=== PATIENT | female | born 1965 | race Caucasian/White ===

== ENCOUNTER 2025-03-05 07:58 | Outpatient (AMB) | payer OTHER, SELFPAY ==
[2025-03-05 08:01] VITALS: BP 112/76; PULSE 80; O2SAT 98; BMI 30.4
--- NOTE | 2025-03-05 08:01 | A.OFFVIS_ITS ---
Vital Signs 03/05/25 08:01 Height 5 ft 2 in Weight 166 lb 8 oz BMI 30.4 BP 112/76 Blood Pressure Location Rt brachial Position Sitting Pulse 80 Pulse Source Pulse Oximeter Pulse Oximetry (%) 98 Oxygen Delivery Method Room Air Intake Visit Reasons: ENP - Snoring Intake Note: Patient presents [employer] Snoring. Intermittent fatigue in early evenings. Able to fall asleep but awakens in early hours 3AM(with dry mouth). 2016 had sleep study-[facility]-has on phone(will request as well)(Had CPAP then lost weight). Allergies morphine Allergy (Mild, Verified 03/05/25 08:03) Nausea and Vomiting Opioids - Morphine Analogues Allergy (Mild, Verified 03/05/25 08:03) Nausea and Vomiting sulfamethoxazole Allergy (Unknown, Verified 03/05/25 08:03) rash trimethoprim Allergy (Unknown, Verified 03/05/25 08:03) Rash HPI Comments Details: 59 year old female here for a sleep evaluation, she was referred to us by her PCP. Last HST was in 2015 she has severe diane AHI is 46 and oxygen < 88%, cpap was started. She was diagnosed in 2012 and since lost 100 lbs, 8.5 years ago. She stopped using the cpap. She snores loudly, she does not gasp for air. She tosses and turns all night long. She grinds her teeth at night. She denies morning headaches and parasomnias. Memory, and diet are stable. She works out 3x a week, and walks daily. She started hormone replacement estradiol pill daily for vasomotor symptoms. Mood can be irritable due to hot flashes, sweating, but managed with citalopram 20mg po daily. She takes otc supplements, Vit D, Vit C, B12, B6, and is followed by bariatric's clinic, Dr. Pineda. She denies smoking and has alcohol socially. [facility] Medical History Encounter for colonoscopy due to history of colonic polyp Vitamin D deficiency Thyroid nodule Scalp psoriasis Menopausal symptoms Malabsorption Loud snoring Left-sided tinnitus Heart murmur Genitourinary syndrome of menopause Generalized joint pain Family history of thyroid disease Crohns disease of small intestine Chronic fatigue BMI 32.0-32.9,adult Anxiety and depression Ankle sprain Alcohol abuse Social History Patient Tobacco Use Status: Never used Tobacco e-Cigarette/Vaping Use: Never Used Physical Exam Vital Signs: Last Vital Signs Pulse 80 03/05/25 08:01 BP 112/76 03/05/25 08:01 Pulse Ox 98 03/05/25 08:01 Oxygen Delivery Method Room Air 03/05/25 08:01 BMI result Body Mass Index 30.4 Const General: cooperative, comfortable and no acute distress Nutritional Appearance: overweight Orientation/consciousness: patient oriented x3 HEENT Face and sinus: Yes face symmetric (h/o bells palsey r. side lip, mildly lower) Throat: Yes other (mallampti score 1) Eyes Pupils: Equal, round and reactive pupils present Neck Neck: Yes full ROM Resp Effort & Inspection: normal respiratory effort and able to speak in complete sentences Neuro General: patient oriented x3 and moves all extremities Cranial nerves: Yes Facial sensation intact/muscles of mastication intact, Yes Equal, round and reactive pupils present, Yes Normal accommodation reflex present, Yes Midline tongue present, Yes Ability to bilaterally rotate head present and Yes Ability to bilaterally elevate shoulders present Cognition (Neuro): normal cognition Gait exam (Neuro): Normal gait present Motor exam (neuro): 5/5 motor strength present throughout and Normal motor muscle tone present throughout Psych Appearance: grossly normal Thought process: Normal thought process present Thought content: Normal thought content present Results Reviewed Results Reviewed: HST [facility] on phone. 2016 severe diane AHI 46 and oxygen desaturation of <88%. Assessment & Plan Assessment & Plan (1) DIANE (obstructive sleep apnea): Code(s): G47.33 - Obstructive sleep apnea (adult) (pediatric) Category: Medical (2) Excessive daytime sleepiness: Code(s): G47.19 - Other hypersomnia Category: Medical Plan HST to r/in DIANE Fatigue, Will review labs at her next visit. Orders: Orders RT home sleep study Today G47.19 - Other hypersomnia Patient Instructions: Sleep Hygiene provided: set a scheduled bedtime and wake time to help regulate the circadian rhythm and balance the release of pituitary hormones. Sleep in a dark room, temperatures below 68 degrees, and no devices n bed. Limit caffeinated products 6 hours prior to bed, and limit fluids 2-4 hours prior to bed. Gentle night yoga, diffusing essential oils, and playing soft music can be relaxing. Coding Level of Care Code New Pt Level 4 (62127) Diagnoses DIANE (obstructive sleep apnea) G47.33 Excessive daytime sleepiness G47.19 Time Spent (min) 40 Comment Evaluation of severe DIANE / Sleep Questionnaire Difficulty falling asleep: No Difficulty staying asleep?: No Number of arousals: 2 Snoring: Yes Witnessed apneas: No Gasping arousals: No Nocturia: No GERD: No Vivid dreams: Yes Acting out dreams: No Abnormal behavior in sleep: No Abnormal movements in sleep: No Morning headaches: No Excessive daytime sleepiness: Yes Daytime naps: Yes (30min-1hour) Restless legs: No Hallucinations: No Sleep paralysis: No Drop attacks: No Sleep Study: Yes (in 2016) CPAP: No
== END 2025-03-05 08:45 | disposition home or self-care (01) ==
LOC: HO.HSMS 07:58
PROVIDERS: Visit Provider Physician Assistant Medical
DX: G47.33 Obstructive sleep apnea (adult) (pediatric) (principal); G47.19 Other hypersomnia
CPT/HCPCS: 99204